=== PATIENT | female | born 1955 | race Caucasian/White ===

== ENCOUNTER 2018-01-21 17:43 | Emergency (ER) | payer MEDICAID, OTHER ==
[2018-01-21 17:43] VITALS: BMI 32.4
[2018-01-21 18:08] VITALS: BP 114/64; PULSE 55; TEMP 97.2; O2SAT 98
--- NOTE | 2018-01-21 20:26 | C.PDOC ---
History Of Present Illness 62 year old female presents to ED with daughter to help translate as she speaks little [place], to complain of left knee pain and right facial injury. Patient reports she tripped and fell last night falling forward on pavement and struck right side of face and left knee. Patient awoke this morning with swelling and bruising. Denies LOC, dizziness, numbness or weakness - HPI Time Seen by Provider: 01/21/18 19:15 Chief Complaint (Nursing): Trauma History Per: Patient History/Exam Limitations: no limitations Injury Occurred (Timing): Days Ago: (1) Location Of Injury: Right: Face, Left: Knee Past Medical History Reviewed: Historical Data, Nursing Documentation, Vital Signs Vital Signs: Last Vital Signs Temp 97.2 F L 01/21/18 18:04 Pulse 55 L 01/21/18 18:04 Resp 18 01/21/18 18:04 BP 114/64 01/21/18 18:04 Pulse Ox 98 01/21/18 18:04 - Medical History PMH: Asthma, HTN Surgical History: Cholecystectomy Family History: States: Unknown Family Hx - Social History Hx Tobacco Use: No Hx Alcohol Use: No Hx Substance Use: No - Immunization History Hx Tetanus Toxoid Vaccination: No Hx Influenza Vaccination: No Hx Pneumococcal Vaccination: No Review Of Systems Except As Marked, All Systems Reviewed And Found Negative. Eyes: Positive for: Eyelid Inflammation. Negative for: Vision Change Musculoskeletal: Positive for: Other (knee pain) Skin: Positive for: Bruising Neurological: Negative for: Weakness, Numbness, Altered Mental Status, Dizziness Physical Exam - Physical Exam Appears: Non-toxic, No Acute Distress Skin: Warm, Dry, Ecchymosis (left anterior knee) Head: Normacephalic Eye(s): bilateral: PERRL, EOMI, right: Eyelid Inflammation, Other (right infraorbital ecchymosis and swelling, no crepitus), left: Normal Inspection Ear(s): Bilateral: Normal Nose: Normal, No Flaring Oral Mucosa: Moist Lips: Normal Appearing, No Contusion Teeth: Caries, No Loose, No Avulsed Throat: No Erythema, No Exudate, No Drooling Neck: Normal ROM Chest: Symmetrical Extremity: Other (Left knee with anterior swelling tenderness, superficial abrasion and painful flexion of joint) Neurological/Psych: Oriented x3, Normal Speech ED Course And Treatment O2 Sat by Pulse Oximetry: 98 - CT Scan/US CT Maxillofacial Other Rad Studies (CT/US): Read By Radiologist, Radiology Report Reviewed CT/US Interpretation: FINDINGS: BONES: No fracture. SOFT TISSUES: Mild right facial swelling. SINUSES: The sinuses are clear. ORBITS: The orbits are normal. No retrobulbar hematoma or mass. IMPRESSION: 1. Mild right facial swelling. 2. No fracture. Medical Decision Making Medical Decision Making: Impression: Injury s.p fall Plan: * Knee xray * maxillofacial * Tylenol Progress: Xray viewed by me and shows no acute fracture CT reviewed shows no facial fracture Patient remained alert and oriented in no distress. Discussed result with patient and advise to rest can apply ice and take analgesic Disposition Counseled Patient/Family Regarding: Studies Performed, Diagnosis, Need For Followup, Rx Given - Disposition Referrals: Britt Schwartz MD [Staff Provider] - Disposition: HOME/ ROUTINE Disposition Time: 20:50 Condition: STABLE Additional Instructions: Your Xray of knee was normal, no fracture. CT of facial bones shows no fracture and mild swelling. Take pain medicine as needed and can apply ice to areas. Follow up with your doctor in few days Prescriptions: Ibuprofen [Motrin] 600 mg PO Q8 #30 tab Instructions: Black Eye, Taking Care of Bruises Forms: [employer] ([place]) - POA Present On Arrival: Falls Or Trauma - Clinical Impression Clinical Impression: Contusion of face, Knee contusion
[2018-01-21] MEDS ORDERED: Tdap Vaccine 0.5 ml Vial (10-64 yrs) IM ONE (20:59)
[2018-01-21] MEDS ORDERED: Tetanus/Diphtheria Toxoids 0.5 ml Syringe IM ONE (21:03)
[2018-01-21 21:21] VITALS: RESP 17
--- NOTE | 2018-01-22 09:34 | CT ---
Date of service: 01/21/2018 PROCEDURE: CT MAXILLOFACIAL BONES WITHOUT CONTRAST HISTORY: facial pain s.p fall COMPARISON: None available. TECHNIQUE: Contiguous axial CT images of the maxillofacial bones were obtained. Coronal and sagittal reformats were generated. Radiation dose: Total exam DLP = 687.54 mGy-cm. This CT exam was performed using one or more of the following dose reduction techniques: Automated exposure control, adjustment of the mA and/or kV according to patient size, and/or use of iterative reconstruction technique. FINDINGS: NASAL BONES: Unremarkable. ORBITS: Unremarkable. PARANASAL SINUSES/ MASTOIDS: Chronic bilateral maxillary sinusitis. MAXILLA: No fracture. Right pre maxillary soft tissue swelling likely due to contusion. MANDIBLE/ TEMPOROMANDIBULAR JOINTS: Unremarkable. SKULL BASE: Unremarkable. TEMPORAL BONES: Middle ears and mastoid grossly unremarkable. OTHER FINDINGS: None. IMPRESSION: No acute fracture. Right maxillary soft tissue contusion. Chronic bilateral maxillary sinusitis. The preliminary findings for this examination were reported by [facility] Radiology at 8:17 p.m. on 01/21/2018. There is concurrence of this report with the preliminary findings.
--- NOTE | 2018-01-22 15:37 | RAD ---
Date of service: 01/21/2018 PROCEDURE: Left Knee Radiographs. HISTORY: Pain. COMPARISON: No prior study available for comparison. FINDINGS: BONES: No evidence of acute displaced fracture nor dislocation. The osseous structures appear intact. Degenerative osteoarthritis. JOINTS: Mild degenerative osteoarthritis including marginal osteophyte formation arising from the medial tibial plateau and medial distal femoral condyle. Slight spurring tibial spines. Tiny posterior patellar osteophytes. JOINT EFFUSION: Suspect trace joint effusion. OTHER FINDINGS: None. IMPRESSION: No evidence of acute displaced fracture nor dislocation Mild DJD as described.
== END 2018-01-21 21:21 | disposition home or self-care (01) ==
LOC: C.ER 17:43
DX: S80.02XA Contusion of left knee, initial encounter (principal); S00.83XA Contusion of other part of head, initial encounter; W01.0XXA Fall on same level from slipping, tripping and stumbling without subsequent striking against object, initial encounter; Y92.480 Sidewalk as the place of occurrence of the external cause